=== PATIENT | male | born 1970 | race African-American/Black ===

== ENCOUNTER 2016-11-16 05:51 | Emergency (ER) | payer SELFPAY ==
[~2016-11-16] VITALS: Ht 177.8 cm; Wt 120.2 kg
[2016-11-16 06:20] VITALS: BP 186/102
--- NOTE | 2016-11-16 06:52 | PHYS DOC ---
Adult General Chief Complaint Chief Complaint: SORE THROAT HPI HPI Patient is a 46 year old male who presents with complaint of sore throat for 3 days. Patient states that he has had worsening pain with swallowing since onset of symptoms. Patient is also noted associated fevers and mild cough. Patient rates his pain currently as 9 out of 10. Patient states he is able to tolerate his own oral secretions but has had difficulty swallowing both liquids and solids due to pain. Patient denies difficulty breathing. Patient has not taken any medications to help with symptoms. Review of Systems Review of Systems Constitutional: Fever [] Eyes: Denies change in visual acuity, redness, or eye pain [] HENT: Sore throat, painful swallowing [] Respiratory: Mild cough, denies shortness of breath [] Cardiovascular: Denies chest pain [] GI: Denies abdominal pain, nausea, vomiting, bloody stools or diarrhea [] : Denies dysuria or hematuria [] Musculoskeletal: Denies back pain or joint pain [] Integument: Denies rash or skin lesions [] Neurologic: Denies headache, focal weakness or sensory changes [] Current Medications Current Medications Current Medications Medications (Trade) Dose Ordered Sig/Vandana Start Time Stop Time Status Last Admin Dose Admin Dexamethasone Sodium Phosphate (Decadron) 12 mg 1X ONCE 11/16/16 07:00 11/16/16 07:01 DC Penicillin G Benzathine (Bicillin L-A) 1,200,000 unit 1X ONCE 11/16/16 07:00 11/16/16 07:01 DC Allergies Allergies Allergies Coded Allergies Type Severity Reaction Last Updated Verified No Known Drug Allergies 11/16/16 No Physical Exam Physical Exam Constitutional: Alert, afebrile, appears in mild to moderate discomfort. [] HENT: Normocephalic, atraumatic, bilateral external ears normal, erythematous oropharynx, tonsillar exudates present, nose normal. [] Eyes: PERRLA, EOMI, conjunctiva normal, no discharge. [] Neck: Normal range of motion, tender anterior cervical lymphadenopathy present, no stridor. [] Cardiovascular:Heart rate regular rhythm, no murmur [] Lungs & Thorax: Bilateral breath sounds clear to auscultation [] Abdomen: Bowel sounds normal, soft, no tenderness, no masses, no pulsatile masses. [] Skin: Warm, dry, no erythema, no rash. [] Extremities: No tenderness, no cyanosis, no clubbing, ROM intact, no edema. [] Neurologic: Alert and oriented X 3, normal motor function, normal sensory function, no focal deficits noted. [] Current Patient Data Vital Signs Vital Signs Date Time Temp Pulse Resp B/P Pulse Ox O2 Delivery O2 Flow Rate FiO2 11/16/16 06:20 99.2 110 20 97 Room Air 99.2 EKG EKG Not performed [] Radiology/Procedures Radiology/Procedures Not performed [] Course & Med Decision Making Course & Med Decision Making Pertinent Labs and Imaging studies reviewed. (See chart for details) Patient has confirmed strep pharyngitis from rapid strep test. The patient was given Bicillin L-A and IM Decadron for treatment in the emergency department. Advised use of Tylenol and Motrin as needed for fever and pain with recommended follow-up with primary doctor in 5 days if symptoms are not improving and return to the emergency department for any worsening symptoms. Patient voiced understanding and in agreement with treatment plan. Dragon Disclaimer Dragon Disclaimer This electronic medical record was generated, in whole or in part, using a voice recognition dictation system. Departure Departure Impression: Primary Impression: Strep pharyngitis Disposition: HOME, SELF-CARE Condition: IMPROVED Patient Instructions: Strep Throat Additional Instructions: You may take [id number] Tylenol and ibuprofen as needed for pain and fever. Continue to drink warm fluids to help soothe her throat. Follow-up with your primary doctor in 5 days if symptoms have not improved. Return to the emergency department for any worsening symptoms. MCKENNA BENSON MD Nov 16, 2016 06:52
[2016-11-16] MEDS ORDERED: DEXAMETHASONE SOD PHOS 20 MG/5 ML VIAL. IM ONE (07:00)
[2016-11-16] MEDS ORDERED: PENICILLIN G BENZATHINE LA 1,200,000 UNIT/2 ML DISP.SYRIN. IM ONE (07:00)
[2016-11-16 10:44] LABS: NEGATIVE OBC STREP NEG; POSITIVE OBC STREP POS
== END 2016-11-16 07:42 | disposition home or self-care (01) ==
LOC: ER 05:51
DX: J02.0 Streptococcal pharyngitis (principal)
CPT/HCPCS: 87880; 96372; 99284; J0561; J1100

== ENCOUNTER 2017-07-03 18:10 | Emergency (ER) | payer SELFPAY ==
--- NOTE | 2017-07-03 18:37 | PHYS DOC ---
Past Medical History Past Medical History: No Pertinent History Past Surgical History: No Surgical History Smokin Pack Per Day Alcohol Use: Occasionally Drug Use: None Adult General Chief Complaint Chief Complaint: SHORTNESS OF BREATH HPI HPI Patient is a 47 year old male presents to the emergency department with complaints of fever, cough, general malaise. He states that over the course of last 24 hours he has since developed mild nausea without vomiting. Patient reports that on Thursday, 5 days prior to his emergency department visit, he began to feel "not well". He states that over the course of 5 days he's gotten progressively worse. He is readily taking foods and fluids no diarrhea. He is not using [id number] medications for relief of his fever. He states that he did take 100 mg of ibuprofen approximately 12 hours prior to arrival emergency Department today but prior to that had not taken any medications. Review of Systems Review of Systems Constitutional: Fever without chills Eyes: Denies change in visual acuity, redness, or eye pain [] HENT: Denies nasal congestion or sore throat [] Respiratory: Dry cough, no shortness of breath, no wheezing. Cardiovascular: Denies chest pain, no edema GI: Denies abdominal pain, complain of nausea without vomiting. No diarrhea. : Denies dysuria or hematuria [] Musculoskeletal: Myalgias Integument: Denies rash or skin lesions [] Neurologic: Mild frontal headache without focal weakness or sensory change Endocrine: Denies polyuria or polydipsia [] Current Medications Current Medications Current Medications Medications (Trade) Dose Ordered Sig/Vandana Start Time Stop Time Status Last Admin Dose Admin Acetaminophen (Tylenol) 650 mg 1X ONCE 07/03/17 18:45 07/03/17 18:46 DC 07/03/17 18:45 650 MG Azithromycin (Zithromax) 500 mg 1X ONCE 07/03/17 20:15 07/03/17 20:16 DC 07/03/17 20:18 500 MG Ceftriaxone Sodium 50 ml @ 100 mls/hr 1X ONCE 07/03/17 20:15 07/03/17 20:44 DC 07/03/17 20:18 100 MLS/HR Ibuprofen (Motrin) 800 mg 1X ONCE 07/03/17 18:45 07/03/17 18:46 DC 07/03/17 18:45 800 MG Ondansetron HCl (Zofran Odt) 4 mg 1X ONCE 07/03/17 18:45 07/03/17 18:46 DC 07/03/17 18:45 4 MG Sodium Chloride 1,000 ml @ 1,000 mls/hr 1X ONCE 07/03/17 19:45 07/03/17 20:44 DC 07/03/17 19:54 1,000 MLS/HR Allergies Allergies Allergies Coded Allergies Type Severity Reaction Last Updated Verified No Known Drug Allergies 11/16/16 No Physical Exam Physical Exam Constitutional: Well developed, well nourished, no acute distress, non-toxic appearance, laughing and joking throughout exam. [] HENT: Normocephalic, atraumatic, bilateral external ears normal, mucous membranes dry, no oral exudates, nose normal. [] Eyes: PERRLA, EOMI, conjunctiva normal, sclera clear, nonicteric, no discharge. [] Neck: Normal range of motion, no tenderness, supple, no meningeal signs, no stridor. [] Cardiovascular:Heart rate regular rhythm, no murmur [] Lungs & Thorax: Bilateral breath sounds clear to auscultation [] Abdomen: Bowel sounds normal, soft, no tenderness, no distention, no masses, no pulsatile masses. [] Skin: Warm, dry, no erythema, no rash. [] Back: No tenderness, no CVA tenderness. [] Extremities: No tenderness, no cyanosis, no clubbing, ROM intact, no edema. [] Neurologic: Alert and oriented X 3, normal motor function, normal sensory function, no focal deficits noted. [] Psychologic: Affect normal, judgement normal, mood normal. [] Current Patient Data Vital Signs Vital Signs Date Time Temp Pulse Resp B/P (MAP) Pulse Ox O2 Delivery O2 Flow Rate FiO2 07/03/17 20:21 102.9 98 20 117/72 (87) 96 Room Air 102.9 Lab Values Laboratory Tests Test 07/03/17 18:39 07/03/17 19:55 07/03/17 20:00 Influenza Type A Antigen Negative (NEGATIVE) Influenza Type B Antigen Negative (NEGATIVE) White Blood Count 12.8 x10^3/uL (4.0-11.0) H Red Blood Count 5.71 x10^6/uL (4.30-5.70) H Hemoglobin 15.9 g/dL (13.0-17.5) Hematocrit 46.3 % (39.0-53.0) Mean Corpuscular Volume 81 fL (79-100) Mean Corpuscular Hemoglobin 28 pg (25-35) Mean Corpuscular Hemoglobin Concent 34 g/dL (31-37) Red Cell Distribution Width 16.4 % (11.5-14.5) H Platelet Count 210 x10^3/uL (140-400) Neutrophils (%) (Auto) 85 % (31-73) H Lymphocytes (%) (Auto) 6 % (24-48) L Monocytes (%) (Auto) 9 % (0-9) Eosinophils (%) (Auto) 0 % (0-3) Basophils (%) (Auto) 1 % (0-3) Neutrophils # (Auto) 10.8 x10^3uL (1.8-7.7) H Lymphocytes # (Auto) 0.8 x10^3/uL (1.0-4.8) L Monocytes # (Auto) 1.1 x10^3/uL (0.0-1.1) Eosinophils # (Auto) 0.0 x10^3/uL (0.0-0.7) Basophils # (Auto) 0.1 x10^3/uL (0.0-0.2) Sodium Level 134 mmol/L (136-145) L Potassium Level 4.4 mmol/L (3.5-5.1) Chloride Level 98 mmol/L (98-107) Carbon Dioxide Level 23 mmol/L (21-32) Anion Gap 13 (6-14) Blood Urea Nitrogen 19 mg/dL (8-26) Creatinine 1.7 mg/dL (0.7-1.3) H Estimated GFR (Cockcroft-Gault) 52.3 BUN/Creatinine Ratio 11 (6-20) Glucose Level 119 mg/dL (70-99) H Calcium Level 9.7 mg/dL (8.5-10.1) Total Bilirubin 0.7 mg/dL (0.2-1.0) Aspartate Amino Transferase (AST) 88 U/L (15-37) H Alanine Aminotransferase (ALT) 87 U/L (16-63) H Alkaline Phosphatase 94 U/L (46-116) Total Protein 9.1 g/dL (6.4-8.2) H Albumin 3.0 g/dL (3.4-5.0) L Albumin/Globulin Ratio 0.5 (1.0-1.7) L Urine Color Mirella Urine Clarity Cloudy Urine pH 5.5 Urine Specific [place] 1.020 Urine Protein >=300 mg/dL (NEG-TRACE) Urine Glucose (UA) Negative mg/dL (NEG) Urine Ketones (Stick) 15 mg/dL (NEG) Urine Blood Large (NEG) Urine Nitrite Negative (NEG) Urine Bilirubin Small (NEG) Urine Urobilinogen Dipstick 1.0 mg/dL (0.2 mg/dL) Urine Leukocyte Esterase Negative (NEG) Urine RBC 11-20 /HPF (0-2) Urine WBC Occ /HPF (0-4) Urine Squamous Epithelial Cells Occ /LPF Urine Bacteria 0 /HPF (0-FEW) Urine Hyaline Casts Occasional /HPF Urine Granular Casts Few /HPF Laboratory Tests 07/03/17 19:55 Laboratory Tests 07/03/17 19:55 EKG EKG [] Radiology/Procedures Radiology/Procedures Chest x-ray reviewed by this provider, right middle lobe infiltrate.[] Course & Med Decision Making Course & Med Decision Making Pertinent Labs and Imaging studies reviewed. (See chart for details) []1740: Evaluation, patient's fever persisted 103.1. He has no complaints of nausea. He has had 3 glasses water. He states that he is having some cramping and feels like he needs to have a bowel movement. He otherwise is without complaints. His family is at the bedside it is requesting that he have an IV with blood drawn because "he always gets really sick". The patient reports no significant past medical history. 2007: Structure with right middle lobe infiltrate. Patient will be given Rocephin 1 g IV and Zithromax 500 mg by mouth in the emergency department Surgeon's saturation is 99% on room air, Patient's heart rate reduced to in the 90s, fever down to 100. He reports he is feeling significantly better. He will be discharged to home with diagnosis pneumonia. Patient was treated in the emergency department with Rocephin 1 g IV and Zithromax 500 mg by mouth. He will continue course of Zithromax at home instructed. He is follow-up with his primary care provider in one to 2 days, sooner proms right. He may return to the emergency Department for new symptoms or concerns or worsening of current condition. I did speak with the patient extensively about smoking cessation. He is in agreement with the plan and agrees to attempt to quit smoking. He will follow up further with his primary care provider should he need assistance with smoking cessation. He did discuss with the patient the slight increase in creatinine as well as elevated liver enzymes. He has no tenderness to palpate in the right upper quadrant his liver is not enlarged. His primary care provider for further evaluation and monitoring. I spoke with the patient and/or care givers. I've explained the patient's condition, diagnosis and treatment plan based on the information available to me at this time. I've answered the patient's and/or care givers questions and a dressing concerns. The patient and/or care givers have as good an understanding of the patient's diagnosis, condition and treatment plan as can be expected at this time. Vital signs stable. The patient's condition is stable and appropriate for discharge from the emergency department. The patient will pursue further outpatient evaluation with the primary care physician or other designated or consulting physician as outlined in the discharge instructions. The patient and/or care givers are agreeable to this plan of care and follow-up instructions and explained in detail. The patient and /or care givers have received these instructions in written format and have expressed an understanding of the discharge instructions. The patient and/or caregivers are aware that any significant change in condition or worsening of symptoms should prompt immediate return to this closest emergency department or call to 911. Cecilia Disclaimer Dragon Disclaimer This electronic medical record was generated, in whole or in part, using a voice recognition dictation system. Departure Departure Impression: Primary Impression: Pneumonia Disposition: 01 HOME, SELF-CARE Condition: STABLE Referrals: NO PCP (PCP) [facility] Patient Instructions: Pneumonia, Adult Scripts Azithromycin (ZITHROMAX) 500 Mg Tablet 1 TAB PO DAILY, #4 TAB Start 07-04-2017. Take all of medication as directed. Prov: MARY ROBLEDO APRN 07/03/17 Problem Qualifiers Primary Impression: Pneumonia Pneumonia type: due to unspecified organism Laterality: right Lung location : middle lobe of lung Qualified Codes: J18.1 - Lobar pneumonia, unspecified organism MARY ROBLEDO APRN Jul 03, 2017 18:37
[2017-07-03] MEDS ORDERED: IBUPROFEN 800 MG TABLET. PO ONE (18:45)
[2017-07-03] MEDS ORDERED: ACETAMINOPHEN 325 MG TABLET. PO ONE (18:45)
[2017-07-03] MEDS ORDERED: ONDANSETRON ODT 4 MG TAB.RAPDIS. PO ONE (18:45)
[2017-07-03 19:35] LABS: OBC FLU VALID
[2017-07-03] MEDS ORDERED: IV NORMAL SALINE 1000ML BAG 1,000 ML IV ONE (19:45)
[2017-07-03 20:09] LABS: BASO # 0.1 x10^3/uL (0.0-0.2); BASO % 1 % (0-3); EOS % 0 % (0-3); HEMATOCRIT 46.3 % (39.0-53.0); HEMOGLOBIN 15.9 g/dL (13.0-17.5); LYMPH # 0.8 x10^3/uL (1.0-4.8); LYMPH % 6 % (24-48); MEAN CORPUSCULAR HEMOGLOBIN 28 pg (25-35); MEAN CORPUSCULAR HGB CONC 34 g/dL (31-37); MEAN CORPUSCULAR VOLUME 81 fL (79-100); MONO % 9 % (0-9); NEUT % 85 % (31-73); PLATELET COUNT 210 x10^3/uL (140-400); RED BLOOD COUNT 5.71 x10^6/uL (4.30-5.70); RED CELL DISTRIBUTION WIDTH 16.4 % (11.5-14.5); WHITE BLOOD COUNT 12.8 x10^3/uL (4.0-11.0)
[2017-07-03] MEDS ORDERED: AZITHROMYCIN 250 MG TABLET. PO ONE (20:15)
[2017-07-03 20:17] LABS: BILIRUBIN,URINE SMALL (NEG); GLUCOSE,URINE NEGATIVE (NEG); NITRITE,URINE NEGATIVE (NEG); PH,URINE 5.5; PROTEIN,URINE >=300 mg/dL (NEG-TRACE)
[2017-07-03 20:34] LABS: BACTERIA,URINE 0 /HPF (0-FEW); SQUAMOUS EPITHELIAL CELL,UR OCC /LPF; WBC,URINE OCC /HPF (0-4)
[2017-07-03] MEDS ORDERED: AZIT500T PO (20:36)
[2017-07-03 20:46] LABS: CALCIUM 9.7 mg/dL (8.5-10.1); CREATININE 1.7 mg/dL (0.7-1.3); GFR 52.3; POTASSIUM 4.4 mmol/L (3.5-5.1)
[2017-07-03 20:52] LABS: ALBUMIN/GLOBULIN RATIO 0.5 (1.0-1.7); TOTAL BILIRUBIN 0.7 mg/dL (0.2-1.0); TOTAL PROTEIN 9.1 g/dL (6.4-8.2)
[2017-07-03 21:40] VITALS: BP 117/83
--- NOTE | 2017-07-04 08:43 | RAD ---
PA and lateral chest. History: Cough and fever There is a consolidating infiltrate in the right lower lobe consistent with an acute pneumonia. Heart is normal in size. There is no effusion. Impression: 1. Right lower lobe pneumonia.
== END 2017-07-03 21:42 | disposition home or self-care (01) ==
LOC: ER 18:10
DX: J18.1 Lobar pneumonia, unspecified organism (principal); F17.200 Nicotine dependence, unspecified, uncomplicated
CPT/HCPCS: 36415; 71020; 80053; 81001; 85025; 87804; 96365; 99285; J0690; J7030; Q0144; Q0162